=== PATIENT | female | born 1965 | race Caucasian/White ===

== ENCOUNTER → 2016-12-13 | Outpatient (CLI) | payer OTHER | LOC: FIMAGING 07:46 | PROVIDERS: ATTEND Internal Medicine | DX: Z12.31 Encounter for screening mammogram for malignant neoplasm of breast (principal) | CPT/HCPCS: G0202 ==

== ENCOUNTER 2017-01-10 07:35 | Day surgery (SDC) | payer OTHER ==
[2017-01-10] MEDS ORDERED: LIDOCAINE 1% 2 ML INJ ONE (08:24)
[2017-01-10] MEDS ORDERED: LIDOCAINE 1% 2 ML INJ ID PRN (08:24)
[2017-01-10] MEDS ORDERED: LR 1,000 ML IV ONE (08:24)
--- NOTE | 2017-01-10 08:54 | PDANEPAE ---
ANE History of Present Illness colonoscopy ANE Past Medical History - Cardiovascular History Hx Hypertension: No Hx Arrhythmias: No Hx Chest Pain: No Hx Coronary Artery / Peripheral Vascular Disease: No Hx CHF / Valvular Disease: No Hx Palpitations: No - Pulmonary History Hx COPD: Yes Hx Asthma/Reactive Airway Disease: No Hx Recent Upper Respiratory Infection: No Hx Oxygen in Use at Home: No Hx Sleep Apnea: Yes Sleep Apnea Screening Result - Last Documented: Positive Pulmonary History Comment: hx of lung ca 2006 with lobectomy. jo positive uses cpap- instructed pt to bring - Neurologic History Hx Cerebrovascular Accident: No Hx Seizures: No Hx Dementia: No - Endocrine History Hx Diabetes: No Endocrine History Comment: hypothyroidism - Renal History Hx Renal Disorders: No - Liver History Hx Hepatic Disorders: No - Neurological & Psychiatric Hx Hx Neurological and Psychiatric Disorders: No - Cancer History Hx Cancer: Yes Cancer History Comment: lung ca 2006 with lobectomy and chemo - Congenital Disorder History Hx Congenital Disorders: No - GI History Hx Gastrointestinal Disorders: Yes Gastrointestinal History Comment: bouts of diarrhea occ. recent stomach aches - Other Health History Other Health History: wears reading glasses - Chronic Pain History Chronic Pain: Yes (back pain from age) - Surgical History Prior Surgeries: right lobectomy 2006. tonsillectomy as child ANE Review of Systems - Exercise capacity METS (RN): 4 METS ANE Patient History - Allergies Allergies/Adverse Reactions: No Known Allergies Allergy (Verified 12/30/16 14:40) - Home Medications Home Medications: Levothyroxine [Synthroid 125 mcg (RX)] 05/14/12 [Last Taken 01/10/17 05:00] Herbals/Supplements -Info Only 12/30/16 [Last Taken 01/05/17] Hormone Replacement 12/30/16 [Last Taken 1 Day Ago] - NPO status NPO Since - Liquids (Date): 01/09/17 NPO Since - Liquids (Time): 23:30 NPO Since - Solids (Date): 01/09/17 NPO Since - Solids (Time): 06:00 - Anes Hx Anes Hx: no prior problems - Smoking Hx Smoking Status: Former smoker - Family Anes Hx Family Hx Anesthesia Complications: none ANE Labs/Vital Signs - Vital Signs Blood Pressure: 123/81 Heart Rate: 71 Respiratory Rate: 16 O2 Sat (%): 95 Height: 154.94 cm Weight: 55.338 kg ANE Physical Exam - Airway Mallampati Score: Class 2 Mouth exam: normal dental/mouth exam - Pulmonary Pulmonary: no respiratory distress - Cardiovascular Cardiovascular: regular rate and rhythym - ASA Status ASA Status: II ANE Anesthesia Plan Anesthesia Plan: GA with mask
[2017-01-10] MEDS ORDERED: MIDAZOLAM 2 MG/2 ML VIAL ONE (08:58)
[2017-01-10] MEDS ORDERED: PROPOFOL/EMULSION 500 MG/50 ML BOTTLE IV ONE (08:58)
--- NOTE | 2017-01-10 09:03 | PDGENHP ---
History & Physical Chief Complaint: large descending colon polyp needing removal Relevant Physical Exam: GEN: NAD. Cardiac: RRR. Lungs: CTA B. Abd: Soft, nt, nd
[2017-01-10] MEDS ORDERED: ONDANSETRON 4 MG/2 ML VIAL IVP PRN (09:12)
[2017-01-10] MEDS ORDERED: NALOXONE HCL 0.4 MG/ML INJ IVP PRN (09:12)
[2017-01-10] MEDS ORDERED: LR 500 ML IV PRN (09:12)
[2017-01-10] MEDS ORDERED: fentaNYL 100 MCG/2 ML INJ IVP PRN (09:12)
[2017-01-10] MEDS ORDERED: PROPOFOL 200 MG/20 ML VIAL ONE ×2 (09:51→10:13)
--- NOTE | 2017-01-10 10:47 | POSTOPPROG ---
Post Op Note Date of Operation: 01/10/17 Surgeon: Deniz Xiao Pre-op Diagnosis: colon polyp needing removal Post-op Diagnosis: colon polyps removed Indication: colon polyps Procedure: colon with bx, snare, injection Findings: 20cm flat splenic flexure polyp removed Inf/Abcess present in the surg proc area at time of surgery?: No
--- NOTE | 2017-01-10 10:52 | POSTANESTH ---
Post Anesthetic Evaluation Cardiovascular Status: Normal, Stable Respiratory Status: Normal, Stable Level of Consciousness/Mental Status: Can Participate in Eval Pain Control: Adequate, Prn Tx Ordered Nausea/Vomiting Control: Adequate, Prn Tx Ordered Complications Possibly Related to Anesthesia: None Noted
[2017-01-10 10:55] VITALS: PULSE 83
[2017-01-10 11:18] VITALS: RESP 20
--- NOTE | 2017-01-10 11:22 | GPN ---
[f rep st] PROCEDURE NOTE PREPROCEDURE DIAGNOSIS: Colon polyps required removal. POSTPROCEDURE DIAGNOSIS: Colon polyps status post removal. PROCEDURE: Colonoscopy with snare, colonoscopy with biopsy, colonoscopy with injection. MEDICATIONS: Monitored anesthesia care. BIOPSIES: Yes. COMPLICATIONS: None. BLOOD LOSS: Minimal. INDICATIONS: The patient is a 51-year-old female with a previous colonoscopy in July of this year showing a large flat polyp at 50 cm from the anal verge. The biopsies had shown sessile serrated ad enoma and tattoo was placed. She is here today for removal. The risks and benefits of the procedur e were discussed with the patient. Consent obtained. Risks include, but not limited to, bleeding, perforation, risks associated with sedation. Patient is ASA Class 1. DESCRIPTION OF PROCEDURE: The pediatric colonoscope was advanced into the terminal ileum, which nilson eared normal. The ileocecal valve and cecum appeared normal. A 2 mm polyp was removed using cold b iopsy forceps from the ascending colon and sent to pathology. The hepatic flexure appeared normal. She had small scattered diverticula in the transverse and descending colon. Two 2 mm polyps were r emoved from the transverse colon using cold biopsy forceps and sent to pathology. The hepatic flexu re showed a tattoo site, and there was a flat 2 cm polyp along the fold at the splenic flexure. The polyp was difficult to visualize and removed, given its location. Ultimately, the polyp was best v isualized with the patient on her back. I then removed the polyp in piecemeal fashion using both ov al and high signal hot snare. The tissue was retrieved for pathology. The edges of the polyp were treated with argon plasma coagulation. A total of 3 clips were placed over the site to close the de fect. A small 1 mm polyp was removed using cold biopsy forceps in the sigmoid colon and sent to [facility]. Retroflexed views in the rectum were normal. IMPRESSION: Colon polyps status post removal. The large polyp at the splenic flexure located at ap proximately 50 cm from the anal verge was removed in piecemeal fashion. There was no bleeding durin g the procedure. RECOMMENDATIONS: 1. Advance diet as tolerated. 2. Discharge to home with escort. 3. Follow up the final pathology results. 4. Repeat colonoscopy in 6 months at the hospital for possible APC given piecemeal polypectomy. 5. The pathology results are available within 10 days. 6. Thank you for allowing me to participate in the care of your patient. Please do not hesitate to call with questions. /[id number]/MODL
[2017-01-10 12:35] VITALS: TEMP 97.5
[2017-01-10 12:53] VITALS: BP 136/84; O2SAT 99
== END 2017-01-10 12:55 | disposition home or self-care (01) ==
LOC: FSGY 07:35
PROVIDERS: ATTEND Internal Medicine Gastroenterology
PROC: 0DBL8ZX Excision of Transverse Colon, Via Natural or Artificial Opening Endoscopic, Diagnostic (ICD-10-PCS; principal; 2017-01-10 09:00)
PROC: 0DBK8ZX Excision of Ascending Colon, Via Natural or Artificial Opening Endoscopic, Diagnostic (ICD-10-PCS; principal; 2017-01-10 09:00)
PROC: 0D5L8ZZ Destruction of Transverse Colon, Via Natural or Artificial Opening Endoscopic (ICD-10-PCS; principal; 2017-01-10 09:00)
PROC: 0DBN8ZX Excision of Sigmoid Colon, Via Natural or Artificial Opening Endoscopic, Diagnostic (ICD-10-PCS; principal; 2017-01-10 09:00)
DX: D12.3 Benign neoplasm of transverse colon (principal); D12.2 Benign neoplasm of ascending colon; D12.5 Benign neoplasm of sigmoid colon; K63.5 Polyp of colon
CPT/HCPCS: J0171; J2250; J2704

== ENCOUNTER 2017-08-11 07:12 | Day surgery (SDC) | payer OTHER ==
[2017-08-11] MEDS ORDERED: LR 1,000 ML IV ONE (07:41)
[2017-08-11] MEDS ORDERED: HYDROCODONE/APAP 5/325 TAB PO PRN (08:38)
[2017-08-11] MEDS ORDERED: NALOXONE HCL 0.4 MG/ML INJ IVP PRN (08:38)
[2017-08-11] MEDS ORDERED: ALBUTEROL 3 ML DEYVIAL IH PRN (08:38)
[2017-08-11] MEDS ORDERED: ONDANSETRON 4 MG/2 ML VIAL IVP PRN (08:38)
[2017-08-11] MEDS ORDERED: ACETAMINOPHEN 500 MG TAB PO PRN (08:38)
[2017-08-11] MEDS ORDERED: DEXAMETHASONE 4 MG/ML VIAL IVP PRN (08:38)
[2017-08-11] MEDS ORDERED: fentaNYL 100 MCG/2 ML INJ IVP PRN (08:38)
[2017-08-11] MEDS ORDERED: oxyCODONE IR 5 MG TAB PO PRN (08:38)
--- NOTE | 2017-08-11 08:42 | PDANEPAE ---
ANE History of Present Illness Colonoscopy ANE Past Medical History - Cardiovascular History Hx Hypertension: No Hx Arrhythmias: No Hx Chest Pain: No Hx Coronary Artery / Peripheral Vascular Disease: No Hx CHF / Valvular Disease: No Hx Palpitations: No - Pulmonary History Hx COPD: Yes Hx Asthma/Reactive Airway Disease: No Hx Recent Upper Respiratory Infection: No Hx Oxygen in Use at Home: No Hx Sleep Apnea: Yes Sleep Apnea Screening Result - Last Documented: Positive Pulmonary History Comment: hx of lung ca 2006 with lobectomy. jo positive uses cpap- instructed pt to bring - Neurologic History Hx Cerebrovascular Accident: No Hx Seizures: No Hx Dementia: No - Endocrine History Hx Diabetes: No Endocrine History Comment: hypothyroidism - Renal History Hx Renal Disorders: No - Liver History Hx Hepatic Disorders: No - Neurological & Psychiatric Hx Hx Neurological and Psychiatric Disorders: No - Cancer History Hx Cancer: Yes Cancer History Comment: lung ca 2006 with lobectomy and chemo - Congenital Disorder History Hx Congenital Disorders: No - GI History Hx Gastrointestinal Disorders: Yes Gastrointestinal History Comment: recent stomach aches. cramping and abd pain - Other Health History Other Health History: wears reading glasses - Chronic Pain History Chronic Pain: Yes (right shoulder pain) - Surgical History Prior Surgeries: right lobectomy 2005. tonsillectomy as child. Colonoscopy ANE Review of Systems Review of Systems: - Exercise capacity METS (RN): 4 METS ANE Patient History - Allergies Allergies/Adverse Reactions: No Known Allergies Allergy (Verified 07/25/17 15:08) - Home Medications Home Medications: Levothyroxine [Synthroid 125 mcg (RX)] 05/14/12 [Last Taken 01/10/17 05:00] Herbals/Supplements -Info Only 12/30/16 [Last Taken 01/05/17] Hormone Replacement 12/30/16 [Last Taken 1 Day Ago ~01/09/17] - NPO status NPO Since - Liquids (Date): 08/10/17 NPO Since - Solids (Date): 08/10/17 - Smoking Hx Smoking Status: Former smoker - Family Anes Hx Family Hx Anesthesia Complications: none ANE Labs/Vital Signs - Vital Signs Blood Pressure: 128/75 Heart Rate: 67 Respiratory Rate: 14 O2 Sat (%): 95 Height: 154.94 cm Weight: 54.431 kg ANE Physical Exam - Airway Neck exam: FROM Mallampati Score: Class 2 Mouth exam: normal dental/mouth exam - Pulmonary Pulmonary: clear to auscultation - Cardiovascular Cardiovascular: regular rate and rhythym - ASA Status ASA Status: II ANE Anesthesia Plan Anesthesia Plan: GA with mask
[2017-08-11] MEDS ORDERED: PROPOFOL/EMULSION 500 MG/50 ML BOTTLE IV ONE (08:44)
[2017-08-11] MEDS ORDERED: LIDOCAINE 2% 5 ML SDV ONE (08:46)
--- NOTE | 2017-08-11 09:45 | PDGENHP ---
History and Physical - Chief Complaint Personal history of colon polyps. - History of Present Illness History Information - Allergies/Home Medication List Allergies/Adverse Reactions: No Known Allergies Allergy (Verified 07/25/17 15:08) Home Medications: Levothyroxine [Synthroid 125 mcg (RX)] 05/14/12 [Last Taken 01/10/17 05:00] Herbals/Supplements -Info Only 12/30/16 [Last Taken 01/05/17] Hormone Replacement 12/30/16 [Last Taken 1 Day Ago ~01/09/17] I have personally reviewed and updated: family history, medical history, social history, surgical history Past Medical History: Phx of colon polyps. - Social History Smoking Status: Former smoker Review of Systems Review of Systems: ROS: 10pt was reviewed & negative except for what was stated in HPI & below Physical Exam Physical Exam: Temp Pulse Resp BP Pulse Ox 36.6 C 67 14 128/75 H 95 08/11/17 07:44 08/11/17 08:42 08/11/17 08:42 08/11/17 08:42 08/11/17 08:42 Constitutional: no apparent distress, appears nourished Cardiovascular: regular rate and rhythym, no murmur, rub, or gallop Respiratory: no respiratory distress Gastrointestinal: normoactive bowel sounds, soft, non-tender abdomen, no palpable masses Skin: warm, normal color Neurologic: AAOx3
--- NOTE | 2017-08-11 10:27 | GIREPORT ---
Formerly [facility] Surgical Services - Endoscopy Department Patient Name: Rose Godinez Procedure Date: 08/11/2017 8:19 AM Patient Type: Outpatient Attending / ER Physician: Sebastien Singh MD Procedure: Colonoscopy Indications: High risk colon cancer surveillance: Personal history of colonic polyps Providers: Sebastien Singh MD Medicines: Monitored Anesthesia Care Complications: No immediate complications. Description of Procedure: After obtaining informed consent, the scope was passed under direct vis ion. Throughout the procedure, the patient's blood pressure, pulse, and oxyg en saturations were monitored continuously. The Colonoscope with irrigatio n channel was introduced through the anus and advanced to the terminal il eum. The colonoscopy was performed without difficulty. The patient tolerated the procedure well. The quality of the bowel preparation was excellent. Findings: The terminal ileum appeared normal. The descending colon, transverse colon, ascending colon, cecum, appendi ceal orifice and ileocecal valve appeared normal. Two sessile polyps were found in the sigmoid colon. The polyps were 3 t o 4 mm in size. These polyps were removed with a cold biopsy forceps. Resec tion and retrieval were complete. The rectum appeared normal. The perianal and digital rectal examinations were normal. Estimated Blood Loss: Estimated blood loss: none. Post Op Diagnosis: - The examined portion of the ileum was normal. - The descending colon, transverse colon, ascending colon, cecum, appendiceal orifice and ileocecal valve are normal. - Two 3 to 4 mm polyps in the sigmoid colon, removed with a cold biopsy forceps. Resected and retrieved. - The rectum is normal. Recommendation: - Discharge patient to home (with spouse). - Patient has a contact number available for emergencies. The signs and symptoms of potential delayed complications were discussed with the pat ient. Return to normal activities tomorrow. Written discharge instructions we re provided to the patient. - Advance diet as tolerated today. - Continue present medications. - Await pathology results. - Repeat colonoscopy in 3 years for surveillance. Attending Participation: I personally performed the entire procedure. Sebastien Singh MD Sebastien Singh MD 08/11/2017 10:27:22 AM This report has been signed electronicallySebastien Singh MD Number of Addenda: 0 Note Initiated On: 08/11/2017 8:19 AM Total Procedure Duration Time 0 hours 31 minutes 55 seconds [email or web address]
[2017-08-11 11:05] VITALS: BP 117/67
== END 2017-08-11 11:27 | disposition home or self-care (01) ==
LOC: FSGY 07:12
PROVIDERS: ATTEND Internal Medicine Gastroenterology
PROC: 0DBN8ZX Excision of Sigmoid Colon, Via Natural or Artificial Opening Endoscopic, Diagnostic (ICD-10-PCS; principal; 2017-08-11 09:00)
DX: D12.5 Benign neoplasm of sigmoid colon (principal)
CPT/HCPCS: J2704

== ENCOUNTER → 2018-02-02 | Outpatient (CLI) | payer OTHER | LOC: FIMAGING 07:48 | PROVIDERS: ATTEND Internal Medicine | DX: Z12.31 Encounter for screening mammogram for malignant neoplasm of breast (principal) ==

== ENCOUNTER → 2018-06-30 | Outpatient (CLI) | payer OTHER | LOC: CIMAGING 09:17 | PROVIDERS: ATTEND Internal Medicine | DX: Z13.6 Encounter for screening for cardiovascular disorders (principal) | CPT/HCPCS: 75571-PO ==

== ENCOUNTER → 2018-08-10 | Outpatient (CLI) | payer OTHER ==
[~2018-08-10] MED LIST: BUPIVACAINE 0.25% 30 ML SDV ONE; DEPO METHYLPREDNISOLONE 40 MG/ML SDV ONE; LIDOCAINE 1% 300 MG/30 ML SDV ONE
== END ==
LOC: FIMAGING 15:04
PROVIDERS: ATTEND Radiology Diagnostic Radiology
PROC: 0R9J3ZX Drainage of Right Shoulder Joint, Percutaneous Approach, Diagnostic (ICD-10-PCS; principal; 2018-08-10)
DX: M75.31 Calcific tendinitis of right shoulder (principal)
CPT/HCPCS: J1030